=== PATIENT | female | born 2000 | race Two or more races ===

== ENCOUNTER 2022-03-19 18:46 | Emergency (ER) | payer BC, MEDICAID ==
[~2022-03-19] VITALS: Ht 154.9 cm; Wt 56.7 kg
[2022-03-19 19:27] VITALS: BP_SYST 112
--- NOTE | 2022-03-19 20:30 | NUR ---
First contact with pt. Pt has cc of blood in the stool. Pt states " I have been noticing blood when I poop for the past 3 months". Pt also endorses straining whenever on the toilet, and no pain is present currently. Pt is AxO x4, gcs 15, speech is clear, skins are intact. VSS. Will continue to monitor.
[2022-03-19] MEDS ORDERED: CYCL10TA24 PO (20:39)
[2022-03-19] MEDS ORDERED: IBUP-1969 PO (20:39)
[2022-03-19] MEDS ORDERED: DOCU-144 PO (20:39)
--- NOTE | 2022-03-19 20:58 | NUR ---
Pt discharged home. Pt provided with discharge instructions including home care and medication instructions. Patient verblaized understanding. All belongings with pt.
[2022-03-19 21:00] VITALS: BP_SYST 111
== END 2022-03-19 20:58 | disposition home or self-care (01) ==
LOC: SED 18:46
DX: K60.2 Anal fissure, unspecified (principal); M54.50 Low back pain, unspecified; R92.2 Inconclusive mammogram
CPT/HCPCS: 99281; 99282